=== PATIENT | male | born 1980 | race Caucasian/White ===

== ENCOUNTER 2020-12-02 21:10 | Emergency (ER) | payer OTHER ==
[~2020-12-02] VITALS: Ht 180.3 cm; Wt 99.8 kg
[~2020-12-02 21:10] MED LIST: ASPIR-TRIN325 MG PO; CEPHALEXIN500 M1 PO; CIPRO500 MG PO; CIPROFLOXACIN500 MG PO; DOXYCYCLINE MO100 MG PO; FLOMAX0.4 MG PO; HYDROCODONE BIT1 T11 PO; LOVENOX30 MG/0.3 SC; Motrin,Rufen800 MG PO; NAPROSYN500 MG PO; NEURONTIN300 MG PO; OXYCODONE HYDRO10 M2 PO; Orphenadrine C100 MG PO; PHENERGAN25 M1 PO; TORADOL10 MG PO; TRAMADOL HCL50 MG PO; VICO75300 PO; ZOFRAN ODT4 MG PO; Zofran4 MG PO
[2020-12-02 21:19] VITALS: BP 165/119
[2020-12-02 22:06] LABS: BASO # 0.1 10*3/uL (0.0-0.1); BASO % 0.6 % (0.0-1.0); EOS # 0.1 10*3/uL (0.0-0.4); HEMATOCRIT 44.5 % (42.0-52.0); LYMPH # 1.2 10*3/uL (1.3-4.4); LYMPH % 12.8 % (27.0-41.0); MEAN CELL VOLUME 90.8 fl (80.0-94.0); MEAN CORPUSCULAR HGB 29.2 pg (27.0-31.0); MEAN CORPUSCULAR HGB CONC 32.1 g/dl (33.0-37.0); MEAN PLATELET VOLUME 9.7 fl (9.6-12.3); MONO # 0.7 10*3/uL (0.1-1.0); MONO % 7.4 % (3.0-9.0); NEUT # 7.3 10*3/uL (2.3-7.9); NEUT % 77.7 % (47.0-73.0); PLATELET COUNT AUTOMATED 319 10*3/uL (130-400); RED CELL DISTRI WIDTH 12.8 % (0-14.5); WHITE BLOOD COUNT 9.4 10*3/uL (4.8-10.8)
[2020-12-02 22:20] LABS: BILIRUBIN Negative (Negative); BLOOD Negative (Negative); CLARITY Turbid (Clear); COLOR Yellow (Yellow); GLUCOSE Negative (Negative); KETONE Negative (Negative); LEUKO ESTERASE Negative (Negative); NITRITE Negative (Negative)
[2020-12-02 22:23] LABS: ALBUMIN 3.7 gm/dl (3.1-4.5); ALKALINE PHOSPHATASE 81 U/L (45-117); BUN 16 mg/dl (7-24); CHLORIDE 107 mmol/L (98-107); POTASSIUM 4.1 mmol/L (3.5-5.1); SGOT/AST 23 IU/L (3-35); SGPT/ALT 54 U/L (12-78); SODIUM 140 mmol/L (136-145)
[2020-12-02 22:28] LABS: URINE AMPHETAMINES < 1000 (1000ng/ml); URINE BARBITURATES < 200 (200ng/ml); URINE BENZODIAZEPINES < 200 (200ng/ml); URINE CANNABINOIDS (THC) < 50 (50ng/ml); URINE COCAINE > 300 (300ng/ml); URINE METHADONE < 300 (300ng/ml); URINE OPIATES < 300 (300ng/ml)
[2020-12-02 22:38] LABS: TROPONIN I < 0.015 ng/ml (<0.045)
[2020-12-02 22:38] LABS: URINE PHENCYCLIDINE < 25 (25ng/ml)
[2020-12-02 22:56] LABS: PH 8.5 (4.5-8.0)
[2020-12-02 22:57] LABS: WBC 0-2 wbc/hpf (0-5)
== END 2020-12-03 01:39 | disposition home or self-care (01) ==
LOC: ED 21:10
PROVIDERS: Nurse Practitioner Family
DX: R07.9 Chest pain, unspecified (principal); T40.5X5A Adverse effect of cocaine, initial encounter; F17.200 Nicotine dependence, unspecified, uncomplicated; Z79.899 Other long term (current) drug therapy; Z79.2 Long term (current) use of antibiotics; Z79.82 Long term (current) use of aspirin; Z90.49 Acquired absence of other specified parts of digestive tract; Z86.14 Personal history of Methicillin resistant Staphylococcus aureus infection; Y92.89 Other specified places as the place of occurrence of the external cause

== ENCOUNTER 2020-12-26 05:44 | Emergency (ER) | payer OTHER ==
[~2020-12-26] VITALS: Ht 180.3 cm; Wt 99.8 kg
[2020-12-26 05:52] VITALS: BP 141/102
[2020-12-26] MEDS ORDERED: SEPTDS PO ×2 (06:11)
== END 2020-12-26 06:23 | disposition home or self-care (01) ==
LOC: ED 05:44
DX: L03.221 Cellulitis of neck (principal); F17.200 Nicotine dependence, unspecified, uncomplicated; Z79.899 Other long term (current) drug therapy

== ENCOUNTER 2020-12-31 00:23 | Emergency (ER) | payer OTHER ==
[~2020-12-31] VITALS: Ht 180.3 cm; Wt 90.7 kg
[~2020-12-31 00:23] MED LIST changes: +SEPTDS PO
[2020-12-31] MEDS ORDERED: NEBULIZER INH (02:26)
[2020-12-31] MEDS ORDERED: PREDNISONE20 M1 PO (02:26)
[2020-12-31] MEDS ORDERED: Ipratropium Brom3 ML INH (02:26)
[2020-12-31 02:30] VITALS: BP 118/66
== END 2020-12-31 02:39 | disposition home or self-care (01) ==
LOC: ED 00:23
DX: J20.9 Acute bronchitis, unspecified (principal); J45.909 Unspecified asthma, uncomplicated; F17.200 Nicotine dependence, unspecified, uncomplicated; Z79.2 Long term (current) use of antibiotics; Z79.899 Other long term (current) drug therapy; Z90.49 Acquired absence of other specified parts of digestive tract; Z86.14 Personal history of Methicillin resistant Staphylococcus aureus infection

== ENCOUNTER 2021-01-02 09:58 | Emergency (ER) | payer OTHER ==
[~2021-01-02] VITALS: Wt 95.3 kg
[~2021-01-02 09:58] MED LIST changes: +Ipratropium Brom3 ML INH; +NEBULIZER INH; +PREDNISONE20 M1 PO
[2021-01-02 10:05] VITALS: BP 120/83
[2021-01-02 10:30] LABS: BASO # 0.1 10*3/uL (0.0-0.1); BASO % 0.3 % (0.0-1.0); EOS % 0.1 % (1.0-4.0); HEMATOCRIT 44.3 % (42.0-52.0); LYMPH # 2.2 10*3/uL (1.3-4.4); LYMPH % 14.7 % (27.0-41.0); MEAN CELL VOLUME 92.1 fl (80.0-94.0); MEAN CORPUSCULAR HGB 29.5 pg (27.0-31.0); MEAN CORPUSCULAR HGB CONC 32.1 g/dl (33.0-37.0); MEAN PLATELET VOLUME 10.1 fl (9.6-12.3); MONO # 1.3 10*3/uL (0.1-1.0); MONO % 8.9 % (3.0-9.0); NEUT # 11.2 10*3/uL (2.3-7.9); NEUT % 75.4 % (47.0-73.0); PLATELET COUNT AUTOMATED 290 10*3/uL (130-400); RED BLOOD COUNT 4.81 10*6/uL (4.50-5.90); RED CELL DISTRI WIDTH 12.9 % (0-14.5); WHITE BLOOD COUNT 14.8 10*3/uL (4.8-10.8)
[2021-01-02 10:43] LABS: ACT PARTIAL THROMBO TIME 24.9 SECONDS (20.0-32.1)
[2021-01-02 10:47] LABS: ALBUMIN 3.9 gm/dl (3.1-4.5); ALKALINE PHOSPHATASE 82 U/L (45-117); BUN 25 mg/dl (7-24); CHLORIDE 109 mmol/L (98-107); CREATININE 1.04 mg/dL (0.70-1.30); LIPASE 56 U/L (73-393); POTASSIUM 3.7 mmol/L (3.5-5.1); SGOT/AST 19 IU/L (3-35); SGPT/ALT 48 U/L (12-78); SODIUM 144 mmol/L (136-145); TOTAL PROTEIN 7.9 gm/dL (6.4-8.2)
[2021-01-02 10:53] LABS: TROPONIN I < 0.015 ng/ml (<0.045)
[2021-01-02 12:50] LABS: URINE AMPHETAMINES < 1000 (1000ng/ml); URINE BARBITURATES < 200 (200ng/ml); URINE BENZODIAZEPINES < 200 (200ng/ml); URINE CANNABINOIDS (THC) < 50 (50ng/ml); URINE COCAINE > 300 (300ng/ml); URINE METHADONE < 300 (300ng/ml); URINE OPIATES < 300 (300ng/ml)
[2021-01-02 12:51] LABS: BILIRUBIN Negative (Negative); BLOOD Negative (Negative); CLARITY Clear (Clear); COLOR Yellow (Yellow); GLUCOSE Negative (Negative); KETONE Trace (Negative); LEUKO ESTERASE Negative (Negative); NITRITE Negative (Negative); PH 5.5 (4.5-8.0); SPECIFIC GRAVITY >= 1.030 (1.001-1.030)
[2021-01-02 12:53] LABS: URINE PHENCYCLIDINE < 25 (25ng/ml)
[2021-01-02 13:27] LABS: CALCIUM OXALATE CRYSTALS 2+; MUCOUS 3+
[2021-01-02] MEDS ORDERED: LEVOFLOXACIN750 M2 PO (13:38)
== END 2021-01-02 13:50 | disposition home or self-care (01) ==
LOC: ED 09:58
PROVIDERS: Emergency Medicine
DX: J18.9 Pneumonia, unspecified organism (principal); Z79.899 Other long term (current) drug therapy; Z79.2 Long term (current) use of antibiotics; Z90.49 Acquired absence of other specified parts of digestive tract; Z86.14 Personal history of Methicillin resistant Staphylococcus aureus infection

== ENCOUNTER 2021-01-11 13:21 | Emergency (ER) | payer OTHER ==
[~2021-01-11] VITALS: Ht 182.8 cm; Wt 81.6 kg
[~2021-01-11 13:21] MED LIST changes: +LEVOFLOXACIN750 M2 PO
[2021-01-11 13:47] VITALS: BP 141/90
== END 2021-01-11 15:53 | disposition home or self-care (01) ==
LOC: ED 13:21
DX: R05 Cough (principal); Z90.49 Acquired absence of other specified parts of digestive tract

== ENCOUNTER 2021-01-15 14:05 | Emergency (ER) | payer OTHER ==
[~2021-01-15] VITALS: Ht 180.3 cm; Wt 99.8 kg
[2021-01-15 14:11] VITALS: BP 139/83
[2021-01-15 15:20] LABS: BASO # 0.1 10*3/uL (0.0-0.1); EOS # 0.1 10*3/uL (0.0-0.4); EOS % 1.3 % (1.0-4.0); LYMPH # 1.3 10*3/uL (1.3-4.4); LYMPH % 13.2 % (27.0-41.0); MEAN CELL VOLUME 92.3 fl (80.0-94.0); MEAN CORPUSCULAR HGB 29.2 pg (27.0-31.0); MEAN CORPUSCULAR HGB CONC 31.7 g/dl (33.0-37.0); MEAN PLATELET VOLUME 9.4 fl (9.6-12.3); MONO # 0.8 10*3/uL (0.1-1.0); MONO % 8.7 % (3.0-9.0); NEUT # 7.1 10*3/uL (2.3-7.9); NEUT % 73.6 % (47.0-73.0); PLATELET COUNT AUTOMATED 246 10*3/uL (130-400); RED BLOOD COUNT 4.55 10*6/uL (4.50-5.90); RED CELL DISTRI WIDTH 12.9 % (0-14.5); WHITE BLOOD COUNT 9.6 10*3/uL (4.8-10.8)
[2021-01-15 15:29] LABS: BILIRUBIN Negative (Negative); BLOOD Negative (Negative); CLARITY Clear (Clear); COLOR Yellow (Yellow); GLUCOSE Negative (Negative); KETONE Negative (Negative); LEUKO ESTERASE Negative (Negative); NITRITE Negative (Negative); PH 6.5 (4.5-8.0); SPECIFIC GRAVITY 1.025 (1.001-1.030)
[2021-01-15 15:31] LABS: ACT PARTIAL THROMBO TIME 26.2 SECONDS (20.0-32.1); INTERNATIONAL NORM RATIO 0.9 (2.0-3.5)
[2021-01-15 15:36] LABS: URINE AMPHETAMINES < 1000 (1000ng/ml); URINE BARBITURATES < 200 (200ng/ml); URINE BENZODIAZEPINES < 200 (200ng/ml); URINE CANNABINOIDS (THC) < 50 (50ng/ml); URINE COCAINE < 300 (300ng/ml); URINE METHADONE < 300 (300ng/ml); URINE OPIATES < 300 (300ng/ml); URINE PHENCYCLIDINE < 25 (25ng/ml)
[2021-01-15 15:37] LABS: ALBUMIN 3.2 gm/dl (3.1-4.5); ALKALINE PHOSPHATASE 75 U/L (45-117); BUN 17 mg/dl (7-24); CHLORIDE 105 mmol/L (98-107); CPK 45 U/L (39-308); SGOT/AST 22 IU/L (3-35); SGPT/ALT 61 U/L (12-78); SODIUM 139 mmol/L (136-145); TOTAL PROTEIN 7.1 gm/dL (6.4-8.2)
[2021-01-15 15:39] LABS: TROPONIN I < 0.015 ng/ml (<0.045)
[2021-01-15 15:39] LABS: BACTERIA TRACE; EPITHELIAL CELLS 0-2; RBC 0-2 rbc/hpf (0-2); WBC 0-2 wbc/hpf (0-5)
[2021-01-15] MEDS ORDERED: TESSALON PERLE100 MG PO (15:41)
== END 2021-01-15 15:44 | disposition home or self-care (01) ==
LOC: ED 14:05
PROVIDERS: Emergency Medicine
DX: R05 Cough (principal); R07.89 Other chest pain; R06.02 Shortness of breath; F11.10 Opioid abuse, uncomplicated; J45.909 Unspecified asthma, uncomplicated; Z20.822 Contact with and (suspected) exposure to COVID-19; Z87.891 Personal history of nicotine dependence; Z79.899 Other long term (current) drug therapy; Z87.442 Personal history of urinary calculi; Z90.49 Acquired absence of other specified parts of digestive tract; Z86.14 Personal history of Methicillin resistant Staphylococcus aureus infection

== ENCOUNTER 2021-01-19 12:32 | Emergency (ER) | payer OTHER ==
[~2021-01-19] VITALS: Ht 180.3 cm; Wt 97.5 kg
[~2021-01-19 12:32] MED LIST changes: +TESSALON PERLE100 MG PO
[2021-01-19 12:52] VITALS: BP 134/80
[2021-01-19] MEDS ORDERED: DOXYCYCLINE100 M3 PO (13:34)
== END 2021-01-19 14:19 | disposition home or self-care (01) ==
LOC: ED 12:32
DX: K13.0 Diseases of lips (principal); L73.1 Pseudofolliculitis barbae; Z79.899 Other long term (current) drug therapy; Z90.49 Acquired absence of other specified parts of digestive tract; Z87.891 Personal history of nicotine dependence

== ENCOUNTER 2021-03-17 20:15 | Emergency (ER) | payer OTHER ==
[~2021-03-17 20:15] MED LIST changes: +DOXYCYCLINE100 M3 PO
== END 2021-03-17 21:02 | disposition left against medical advice (07) ==
LOC: ED 20:15
DX: R07.89 Other chest pain (principal); Z53.21 Procedure and treatment not carried out due to patient leaving prior to being seen by health care provider

== ENCOUNTER 2021-04-06 17:28 | Inpatient (IN) | payer OTHER ==
[~2021-04-06] VITALS: Ht 177.8 cm; Wt 97.2 kg
[2021-04-06 17:45] VITALS: BP 137/90
[2021-04-06] MEDS ORDERED: PEPCID20 MG PO (18:20)
[2021-04-06 19:28] LABS: BILIRUBIN Negative (Negative); BLOOD Negative (Negative); CLARITY Clear (Clear); COLOR Yellow (Yellow); GLUCOSE Negative (Negative); KETONE 1+ (Negative); LEUKO ESTERASE Trace (Negative); NITRITE Negative (Negative); SPECIFIC GRAVITY 1.025 (1.001-1.030)
[2021-04-06 19:40] LABS: EPITHELIAL CELLS 0-2; HYALINE CAST 0-2; MUCOUS 2+; RBC 0-2 rbc/hpf (0-2)
[2021-04-06 19:56] LABS: BASO # 0.1 10*3/uL (0.0-0.1); BASO % 0.7 % (0.0-1.0); EOS % 0.2 % (1.0-4.0); HEMATOCRIT 41.1 % (42.0-52.0); LYMPH # 0.8 10*3/uL (1.3-4.4); LYMPH % 9.8 % (27.0-41.0); MEAN CELL VOLUME 86.3 fl (80.0-94.0); MEAN CORPUSCULAR HGB 29.4 pg (27.0-31.0); MEAN CORPUSCULAR HGB CONC 34.1 g/dl (33.0-37.0); MEAN PLATELET VOLUME 9.6 fl (9.6-12.3); MONO # 0.5 10*3/uL (0.1-1.0); MONO % 5.6 % (3.0-9.0); NEUT # 6.9 10*3/uL (2.3-7.9); NEUT % 83.3 % (47.0-73.0); PLATELET COUNT AUTOMATED 267 10*3/uL (130-400); RED BLOOD COUNT 4.76 10*6/uL (4.50-5.90); RED CELL DISTRI WIDTH 12.1 % (0-14.5); WHITE BLOOD COUNT 8.2 10*3/uL (4.8-10.8)
[2021-04-06 20:00] VITALS: BP 123/75
[2021-04-06 20:08] LABS: INTERNATIONAL NORM RATIO 1.1 (2.0-3.5)
[2021-04-06 20:15] LABS: ALKALINE PHOSPHATASE 80 U/L (45-117); BUN 13 mg/dl (7-24); CHLORIDE 103 mmol/L (98-107); CREATININE 1.09 mg/dL (0.70-1.30); POTASSIUM 4.1 mmol/L (3.5-5.1); SGOT/AST 57 IU/L (3-35); SGPT/ALT 104 U/L (12-78); SODIUM 134 mmol/L (136-145); TOTAL PROTEIN 8.4 gm/dL (6.4-8.2)
[2021-04-06 20:16] LABS: URINE AMPHETAMINES < 1000 (1000ng/ml); URINE BARBITURATES < 200 (200ng/ml); URINE BENZODIAZEPINES > 200 (200ng/ml); URINE CANNABINOIDS (THC) < 50 (50ng/ml); URINE COCAINE < 300 (300ng/ml); URINE METHADONE < 300 (300ng/ml); URINE OPIATES < 300 (300ng/ml)
[2021-04-06 20:18] LABS: ETHYL ALCOHOL < 3.0 mg/dl (<3)
[2021-04-06 20:18] LABS: URINE PHENCYCLIDINE < 25 (25ng/ml)
[2021-04-07 01:40] VITALS: BP 149/75
[2021-04-07 08:00] VITALS: BP 159/82
[2021-04-07 12:00] VITALS: BP 164/74
[2021-04-07 16:00] VITALS: BP 131/62
[2021-04-07 20:00] VITALS: BP 130/115
[2021-04-08] VITALS: BP 135/80
[2021-04-08 06:07] LABS: HEP B CORE AB, IGM Negative (Negative); HEPATITIS B SURFACE AG Negative (Negative); HEPATITIS C VIRUS ANTIBODY >11.0 s/co (0.0-0.9)
[2021-04-08 06:55] LABS: BUN 17 mg/dl (7-24); CHLORIDE 101 mmol/L (98-107); CREATININE 0.94 mg/dL (0.70-1.30); SODIUM 132 mmol/L (136-145)
[2021-04-08 07:35] LABS: MEAN CORPUSCULAR HGB 29.4 pg (27.0-31.0); MEAN CORPUSCULAR HGB CONC 35.6 g/dl (33.0-37.0); MEAN PLATELET VOLUME 10.5 fl (9.6-12.3); PLATELET COUNT AUTOMATED 284 10*3/uL (130-400); RED BLOOD COUNT 4.72 10*6/uL (4.50-5.90); RED CELL DISTRI WIDTH 12.5 % (0-14.5)
[2021-04-08 07:36] LABS: MEAN CELL VOLUME 82.6 fl (80.0-94.0)
[2021-04-08 07:44] LABS: BASOPHILS 1 % (0-1); TOTAL CELLS COUNTED 100 #CELLS
[2021-04-08 07:46] LABS: PLATELET SUFFICIENCY NORMAL (NORMAL)
[2021-04-08 08:10] VITALS: BP 155/84
[2021-04-08 12:03] VITALS: BP 140/93
== END 2021-04-08 15:21 | disposition left against medical advice (07) | DRG 770 ==
LOC: 5E 17:28
PROVIDERS: Internal Medicine; ADMIT Family Medicine; ATTEND Family Medicine
DX: F11.93 Opioid use, unspecified with withdrawal (principal); E87.1 Hypo-osmolality and hyponatremia; J45.909 Unspecified asthma, uncomplicated; F31.9 Bipolar disorder, unspecified; F41.9 Anxiety disorder, unspecified; R73.9 Hyperglycemia, unspecified; R76.8 Other specified abnormal immunological findings in serum; Z53.29 Procedure and treatment not carried out because of patient's decision for other reasons; F13.939 Sedative, hypnotic or anxiolytic use, unspecified with withdrawal, unspecified; E80.6 Other disorders of bilirubin metabolism; F17.210 Nicotine dependence, cigarettes, uncomplicated; R74.01 Elevation of levels of liver transaminase levels; K21.9 Gastro-esophageal reflux disease without esophagitis; Z87.442 Personal history of urinary calculi; Z82.49 Family history of ischemic heart disease and other diseases of the circulatory system; Z79.899 Other long term (current) drug therapy

== ENCOUNTER 2021-05-25 17:17 | Emergency (ER) | payer OTHER ==
[~2021-05-25] VITALS: Ht 180.3 cm; Wt 93.0 kg
[~2021-05-25 17:17] MED LIST changes: +PEPCID20 MG PO
[2021-05-25 17:24] VITALS: BP 135/81
[2021-05-25 20:46] LABS: BILIRUBIN Negative (Negative); BLOOD Negative (Negative); CLARITY Clear (Clear); COLOR Yellow (Yellow); GLUCOSE Negative (Negative); KETONE 2+ (Negative); LEUKO ESTERASE Negative (Negative); NITRITE Negative (Negative); SPECIFIC GRAVITY 1.025 (1.001-1.030)
[2021-05-25 20:53] LABS: BACTERIA TRACE; EPITHELIAL CELLS 0-2; MUCOUS TRACE; WBC 0-2 wbc/hpf (0-5)
[2021-05-25 21:23] LABS: BASO % 0.6 % (0.0-1.0); EOS # 0.1 10*3/uL (0.0-0.4); EOS % 0.8 % (1.0-4.0); HEMATOCRIT 41.3 % (42.0-52.0); LYMPH # 1.4 10*3/uL (1.3-4.4); LYMPH % 21.1 % (27.0-41.0); MEAN CELL VOLUME 91.6 fl (80.0-94.0); MEAN CORPUSCULAR HGB 29.3 pg (27.0-31.0); MONO # 0.7 10*3/uL (0.1-1.0); MONO % 10.9 % (3.0-9.0); NEUT # 4.3 10*3/uL (2.3-7.9); NEUT % 66.4 % (47.0-73.0); PLATELET COUNT AUTOMATED 250 10*3/uL (130-400); RED BLOOD COUNT 4.51 10*6/uL (4.50-5.90); RED CELL DISTRI WIDTH 12.6 % (0-14.5); WHITE BLOOD COUNT 6.5 10*3/uL (4.8-10.8)
[2021-05-25 21:39] LABS: ALBUMIN 4.4 gm/dl (3.1-4.5); ALKALINE PHOSPHATASE 63 U/L (45-117); BUN 9 mg/dl (7-24); CHLORIDE 106 mmol/L (98-107); CREATININE 0.94 mg/dL (0.70-1.30); LIPASE 53 U/L (73-393); POTASSIUM 3.9 mmol/L (3.5-5.1); SGOT/AST 28 IU/L (3-35); SGPT/ALT 59 U/L (12-78); SODIUM 135 mmol/L (136-145)
== END 2021-05-25 22:50 | disposition home or self-care (01) ==
LOC: ED 17:17
PROVIDERS: Physician Assistant
DX: K59.00 Constipation, unspecified (principal); R10.84 Generalized abdominal pain; Z87.891 Personal history of nicotine dependence; Z90.49 Acquired absence of other specified parts of digestive tract; Z79.899 Other long term (current) drug therapy

== ENCOUNTER 2021-05-25 23:38 | Inpatient (IN) | payer OTHER ==
[~2021-05-25] VITALS: Ht 180.3 cm; Wt 87.2 kg
[2021-05-26] VITALS: BP 114/70
[2021-05-26 04:49] LABS: BASO # 0.1 10*3/uL (0.0-0.1); BASO % 0.8 % (0.0-1.0); EOS # 0.1 10*3/uL (0.0-0.4); EOS % 1.4 % (1.0-4.0); LYMPH # 1.6 10*3/uL (1.3-4.4); LYMPH % 25.1 % (27.0-41.0); MEAN CORPUSCULAR HGB 29.3 pg (27.0-31.0); MEAN CORPUSCULAR HGB CONC 33.7 g/dl (33.0-37.0); MEAN PLATELET VOLUME 10.5 fl (9.6-12.3); MONO # 0.8 10*3/uL (0.1-1.0); MONO % 12.8 % (3.0-9.0); NEUT # 3.8 10*3/uL (2.3-7.9); NEUT % 59.3 % (47.0-73.0); PLATELET COUNT AUTOMATED 226 10*3/uL (130-400); RED BLOOD COUNT 4.37 10*6/uL (4.50-5.90); RED CELL DISTRI WIDTH 12.6 % (0-14.5); WHITE BLOOD COUNT 6.4 10*3/uL (4.8-10.8)
[2021-05-26 05:05] LABS: CHLORIDE 108 mmol/L (98-107); SODIUM 139 mmol/L (136-145)
[2021-05-26 05:10] VITALS: BP 132/65
[2021-05-26 05:57] LABS: ALBUMIN 3.9 gm/dl (3.1-4.5); ALKALINE PHOSPHATASE 59 U/L (45-117); BUN 10 mg/dl (7-24); SGOT/AST 27 IU/L (3-35); SGPT/ALT 58 U/L (12-78); TOTAL PROTEIN 7.7 gm/dL (6.4-8.2)
[2021-05-26 06:01] LABS: ETHYL ALCOHOL < 3.0 mg/dl (<3)
[2021-05-26 13:19] LABS: BILIRUBIN Negative (Negative); BLOOD Negative (Negative); CLARITY Clear (Clear); COLOR Yellow (Yellow); GLUCOSE Negative (Negative); KETONE 2+ (Negative); LEUKO ESTERASE Negative (Negative); NITRITE Negative (Negative); PH 5.5 (4.5-8.0); SPECIFIC GRAVITY >= 1.030 (1.001-1.030)
[2021-05-26 13:26] LABS: URINE AMPHETAMINES < 1000 (1000ng/ml); URINE BARBITURATES < 200 (200ng/ml); URINE BENZODIAZEPINES > 200 (200ng/ml); URINE CANNABINOIDS (THC) < 50 (50ng/ml); URINE COCAINE > 300 (300ng/ml); URINE METHADONE < 300 (300ng/ml); URINE OPIATES < 300 (300ng/ml)
[2021-05-26 13:29] LABS: BACTERIA TRACE; CALCIUM OXALATE CRYSTALS 2+
[2021-05-26 13:30] LABS: URINE PHENCYCLIDINE < 25 (25ng/ml)
[2021-05-26 22:00] VITALS: BP 127/67
[2021-05-27] VITALS (8 sets, daily range): BP systolic 134–173; BP diastolic 63–96
[2021-05-27 06:04] LABS: ALBUMIN 3.9 gm/dl (3.1-4.5); ALKALINE PHOSPHATASE 60 U/L (45-117); BUN 14 mg/dl (7-24); CHLORIDE 104 mmol/L (98-107); CREATININE 0.95 mg/dL (0.70-1.30); POTASSIUM 3.7 mmol/L (3.5-5.1); SGOT/AST 24 IU/L (3-35); SGPT/ALT 55 U/L (12-78); SODIUM 138 mmol/L (136-145); TOTAL PROTEIN 7.6 gm/dL (6.4-8.2)
[2021-05-27 06:11] LABS: BASO % 0.1 % (0.0-1.0); HEMATOCRIT 40.5 % (42.0-52.0); LYMPH % 8.1 % (27.0-41.0); MEAN CELL VOLUME 89.8 fl (80.0-94.0); MEAN CORPUSCULAR HGB 28.8 pg (27.0-31.0); MEAN CORPUSCULAR HGB CONC 32.1 g/dl (33.0-37.0); MEAN PLATELET VOLUME 12.3 fl (9.6-12.3); MONO # 0.9 10*3/uL (0.1-1.0); MONO % 7.1 % (3.0-9.0); NEUT # 10.8 10*3/uL (2.3-7.9); NEUT % 84.2 % (47.0-73.0); PLATELET COUNT AUTOMATED 237 10*3/uL (130-400); RED BLOOD COUNT 4.51 10*6/uL (4.50-5.90); RED CELL DISTRI WIDTH 12.7 % (0-14.5); WHITE BLOOD COUNT 12.8 10*3/uL (4.8-10.8)
[2021-05-28] VITALS: BP 156/90
[2021-05-28 04:00] VITALS: BP 146/88
[2021-05-28 06:09] LABS: ALBUMIN 3.9 gm/dl (3.1-4.5); ALKALINE PHOSPHATASE 62 U/L (45-117); BUN 11 mg/dl (7-24); CHLORIDE 100 mmol/L (98-107); CREATININE 0.77 mg/dL (0.70-1.30); POTASSIUM 3.4 mmol/L (3.5-5.1); SGOT/AST 18 IU/L (3-35); SGPT/ALT 47 U/L (12-78); SODIUM 133 mmol/L (136-145); TOTAL PROTEIN 7.6 gm/dL (6.4-8.2)
[2021-05-28 06:35] LABS: HEMATOCRIT 41.6 % (42.0-52.0); MEAN CORPUSCULAR HGB 29.4 pg (27.0-31.0); MEAN CORPUSCULAR HGB CONC 34.9 g/dl (33.0-37.0); MEAN PLATELET VOLUME 11.2 fl (9.6-12.3); PLATELET COUNT AUTOMATED 300 10*3/uL (130-400); RED BLOOD COUNT 4.93 10*6/uL (4.50-5.90); RED CELL DISTRI WIDTH 12.3 % (0-14.5)
[2021-05-28 06:38] LABS: MEAN CELL VOLUME 84.4 fl (80.0-94.0)
[2021-05-28 06:59] LABS: MICROCYTOSIS SLIGHT; PLATELET SUFFICIENCY NORMAL (NORMAL); TOTAL CELLS COUNTED 100 #CELLS
[2021-05-28 08:00] VITALS: BP 126/89
[2021-05-28 12:00] VITALS: BP 173/105
[2021-05-28 16:00] VITALS: BP 153/95
[2021-05-28 20:00] VITALS: BP 148/104
[2021-05-29] VITALS: BP 138/98
[2021-05-29 05:31] LABS: ALKALINE PHOSPHATASE 67 U/L (45-117); BUN 16 mg/dl (7-24); CHLORIDE 101 mmol/L (98-107); CREATININE 0.97 mg/dL (0.70-1.30); POTASSIUM 3.5 mmol/L (3.5-5.1); SGOT/AST 15 IU/L (3-35); SGPT/ALT 43 U/L (12-78); SODIUM 135 mmol/L (136-145)
[2021-05-29 06:35] LABS: BASO # 0.1 10*3/uL (0.0-0.1); BASO % 0.6 % (0.0-1.0); EOS % 0.1 % (1.0-4.0); HEMATOCRIT 47.2 % (42.0-52.0); LYMPH # 1.9 10*3/uL (1.3-4.4); LYMPH % 14.6 % (27.0-41.0); MEAN CELL VOLUME 85.4 fl (80.0-94.0); MEAN CORPUSCULAR HGB 28.9 pg (27.0-31.0); MEAN CORPUSCULAR HGB CONC 33.9 g/dl (33.0-37.0); MEAN PLATELET VOLUME 11.2 fl (9.6-12.3); MONO # 1.5 10*3/uL (0.1-1.0); MONO % 11.7 % (3.0-9.0); NEUT # 9.2 10*3/uL (2.3-7.9); NEUT % 72.4 % (47.0-73.0); PLATELET COUNT AUTOMATED 327 10*3/uL (130-400); RED BLOOD COUNT 5.53 10*6/uL (4.50-5.90); RED CELL DISTRI WIDTH 12.4 % (0-14.5); WHITE BLOOD COUNT 12.7 10*3/uL (4.8-10.8)
[2021-05-29 08:00] VITALS: BP 168/110
[2021-05-29 12:00] VITALS: BP 160/118
[2021-05-29 16:00] VITALS: BP 153/102
== END 2021-05-29 18:04 | disposition left against medical advice (07) | DRG 770 ==
LOC: ED 23:38 → EDHOLD 05-26 03:33 → 4E 05-26 03:33
PROVIDERS: Family Medicine; Hospitalist; Internal Medicine; ADMIT Student in an Organized Health Care Education/Training Program; ATTEND Student in an Organized Health Care Education/Training Program
DX: F11.13 Opioid abuse with withdrawal (principal); F14.10 Cocaine abuse, uncomplicated; F13.10 Sedative, hypnotic or anxiolytic abuse, uncomplicated; K44.9 Diaphragmatic hernia without obstruction or gangrene; J45.40 Moderate persistent asthma, uncomplicated; F41.9 Anxiety disorder, unspecified; F31.9 Bipolar disorder, unspecified; K21.00 Gastro-esophageal reflux disease with esophagitis, without bleeding; K82.8 Other specified diseases of gallbladder; K76.0 Fatty (change of) liver, not elsewhere classified; Z53.29 Procedure and treatment not carried out because of patient's decision for other reasons; B18.2 Chronic viral hepatitis C; E87.8 Other disorders of electrolyte and fluid balance, not elsewhere classified; K59.00 Constipation, unspecified; Z87.891 Personal history of nicotine dependence; Z90.49 Acquired absence of other specified parts of digestive tract; Z82.49 Family history of ischemic heart disease and other diseases of the circulatory system; Z79.899 Other long term (current) drug therapy

== ENCOUNTER → 2021-06-07 | Outpatient (CLI) | payer OTHER ==
[2021-06-07 16:53] LABS: BASO # 0.1 10*3/uL (0.0-0.1); BASO % 0.5 % (0.0-1.0); EOS # 0.1 10*3/uL (0.0-0.4); EOS % 0.4 % (1.0-4.0); HEMATOCRIT 43.2 % (42.0-52.0); LYMPH # 1.5 10*3/uL (1.3-4.4); LYMPH % 12.1 % (27.0-41.0); MEAN CELL VOLUME 88.2 fl (80.0-94.0); MEAN CORPUSCULAR HGB CONC 32.9 g/dl (33.0-37.0); MEAN PLATELET VOLUME 10.6 fl (9.6-12.3); MONO # 0.9 10*3/uL (0.1-1.0); MONO % 6.8 % (3.0-9.0); NEUT # 10.2 10*3/uL (2.3-7.9); NEUT % 79.8 % (47.0-73.0); PLATELET COUNT AUTOMATED 271 10*3/uL (130-400); RED CELL DISTRI WIDTH 12.8 % (0-14.5); WHITE BLOOD COUNT 12.7 10*3/uL (4.8-10.8)
[2021-06-07 17:22] LABS: ALBUMIN 4.3 gm/dl (3.1-4.5); ALKALINE PHOSPHATASE 61 U/L (45-117); BUN 12 mg/dl (7-24); CHLORIDE 107 mmol/L (98-107); IRON 76 ug/dL (65-175); POTASSIUM 3.4 mmol/L (3.5-5.1); SGOT/AST 24 IU/L (3-35); SGPT/ALT 71 U/L (12-78); SODIUM 140 mmol/L (136-145); TOTAL PROTEIN 7.9 gm/dL (6.4-8.2)
[2021-06-07 17:23] LABS: INTERNATIONAL NORM RATIO 1.2 (2.0-3.5)
[2021-06-07 17:41] LABS: URINE AMPHETAMINES > 1000 (1000ng/ml); URINE BARBITURATES < 200 (200ng/ml); URINE BENZODIAZEPINES < 200 (200ng/ml); URINE CANNABINOIDS (THC) < 50 (50ng/ml); URINE COCAINE > 300 (300ng/ml); URINE METHADONE < 300 (300ng/ml); URINE OPIATES > 300 (300ng/ml)
[2021-06-07 17:42] LABS: URINE PHENCYCLIDINE < 25 (25ng/ml)
[2021-06-08 06:07] LABS: HEP B CORE AB, IGM Negative (Negative); HEPATITIS B SURFACE AB Reactive (.); HEPATITIS B SURFACE AG Negative (Negative)
[2021-06-08 09:39] LABS: HEPATITIS C VIRUS ANTIBODY >11.0 s/co (0.0-0.9)
[2021-06-08 19:06] LABS: HCV LOG10 5.529 (.); HEPATITIS C QNT 338000 IU/mL (.)
== END | disposition home or self-care (01) ==
LOC: LAB 16:10
PROVIDERS: ATTEND Nurse Practitioner Family
DX: Z11.59 Encounter for screening for other viral diseases (principal); K59.09 Other constipation; B19.20 Unspecified viral hepatitis C without hepatic coma; F11.10 Opioid abuse, uncomplicated; Z72.89 Other problems related to lifestyle; Z79.899 Other long term (current) drug therapy

== ENCOUNTER → 2021-06-09 | Outpatient (CLI) | payer OTHER ==
[2021-06-13 03:06] LABS: AST (SGOT) P5P 32 IU/L (0-40); CHOLESTEROL, TOTAL 185 mg/dL (100-199); GLUCOSE, SERUM 94 mg/dL (65-99); TRIGLYCERIDES 92 mg/dL (0-149)
== END | disposition home or self-care (01) ==
LOC: LAB 01:08
PROVIDERS: ATTEND Nurse Practitioner Family
DX: B19.20 Unspecified viral hepatitis C without hepatic coma (principal)

== ENCOUNTER 2023-01-11 18:18 | Emergency (ER) | payer OTHER ==
[~2023-01-11] VITALS: Ht 170.1 cm; Wt 86.2 kg
== END 2023-01-11 19:07 | disposition home or self-care (01) ==
LOC: ED 18:18
DX: T40.1X4A Poisoning by heroin, undetermined, initial encounter (principal); K21.9 Gastro-esophageal reflux disease without esophagitis; Z90.49 Acquired absence of other specified parts of digestive tract; Z98.890 Other specified postprocedural states; Z87.891 Personal history of nicotine dependence; Y92.89 Other specified places as the place of occurrence of the external cause